=== PATIENT | female | born 1995 | race Caucasian/White ===

== ENCOUNTER 2024-02-04 15:00 | Emergency (ER) | payer BC ==
[~2024-02-04] VITALS: Ht 157.5 cm; Wt 85.8 kg
[2024-02-04 15:09] VITALS: BP 113/77; PULSE 65; RESP 16; TEMP 98.2; O2SAT 98
[2024-02-04 15:46] VITALS: BP 113/77; PULSE 65; RESP 16; TEMP 98.2; O2SAT 98
== END 2024-02-04 17:10 | disposition home or self-care (01) ==
LOC: MED 15:00
DX: S61.452A Open bite of left hand, initial encounter (principal); W54.0XXA Bitten by dog, initial encounter; Y93.89 Activity, other specified; Y92.89 Other specified places as the place of occurrence of the external cause; Y99.8 Other external cause status
CPT/HCPCS: 73110; 99283